=== PATIENT | female | born 1945 | race Caucasian/White ===

== ENCOUNTER 2018-08-28 05:52 | Day surgery (SDC) | payer OTHER ==
[~2018-08-28 05:52] MED LIST: ATACAND4 MG PO; ATORVASTATIN CA40 MG; FORTAMET500 MG PO; HYDROCHLOROTH12.5 M1 PO; HYDROXYCHLOROQ200 MG PO; METOPROLOL ER-1 EACH PO; SYNTHROID112 MCG PO
== END 2018-08-28 12:00 | disposition home or self-care (01) ==
LOC: CIR.AMB 05:52
DX: L72.3 Sebaceous cyst (principal)

== ENCOUNTER 2021-01-19 08:00 | Outpatient (CLI) | payer OTHER | END 2021-01-19 08:30 | disposition home or self-care (01) | LOC: PPH VACUNA 08:00 | DX: Z23 Encounter for immunization (principal) ==

== ENCOUNTER 2021-06-22 06:06 | Day surgery (SDC) | payer OTHER ==
[~2021-06-22 06:06] MED LIST changes: +TOPROL XL25 M1 PO
== END 2021-06-22 10:40 | disposition home or self-care (01) ==
LOC: CIR.AMB 06:06
PROVIDERS: ATTEND Surgery
DX: L72.11 Pilar cyst (principal); Z20.822 Contact with and (suspected) exposure to COVID-19

== ENCOUNTER 2022-02-17 08:00 | Outpatient (CLI) | payer OTHER | END 2022-02-17 08:05 | disposition home or self-care (01) | LOC: PPH VACUNA 08:00 | PROVIDERS: ATTEND Emergency Medicine Pediatric Emergency Medicine | DX: Z23 Encounter for immunization (principal) ==